=== PATIENT | female | born 1955 | race Caucasian/White ===

== ENCOUNTER 2023-10-31 18:33 | Outpatient (CLI) | payer MEDICARE, BC, SELFPAY | END 2023-10-31 18:34 | disposition home or self-care (01) | LOC: AMB 11-03 13:14 | PROVIDERS: PCP Internal Medicine; Visit Provider Family Medicine | DX: S59.911A Unspecified injury of right forearm, initial encounter (principal); W01.0XXA Fall on same level from slipping, tripping and stumbling without subsequent striking against object, initial encounter; Y92.26 Movie house or cinema as the place of occurrence of the external cause | CPT/HCPCS: A0425; A0427 ==

== ENCOUNTER 2023-10-31 19:11 | Emergency (ER) | payer MEDICARE, BC, SELFPAY ==
[2023-10-31] VITALS (17 sets, daily range): BP systolic 121–144; BP diastolic 71–99; PULSE 71–86; RESP 18; TEMP 36.2; O2SAT 93–98; BMI 48.3
--- NOTE | 2023-10-31 19:36 | ED.GENADULT ---
HPI - General Adult General Chief complaint: Extremity Pain/Injury, Upper Stated complaint: Fall Time Seen by Provider: 10/31/23 19:21 History of Present Illness HPI narrative: Patient [place] the [place], tripped and fell on outstretched right arm. Pain in right shoulder. Patient denies hitting head/ loc. No previous injuries to right arm. EMS administered 50mcg Fentanyl, 4mg Zofran 68-year-old woman presenting to the emergency department with family following a fall near the end of the movie [employer]. Tripped and fell on her right arm. Has pretty bad right shoulder pain and is feeling nauseated still in spite of EMS administered Zofran along with fentanyl. Did have some tingling in her right hand. Denies any other injuries were sustained. No neck or back pain. No lower extremity pain. Has never injured her right arm like this before. Did not hit her head and there was no loss of consciousness Related Data Home Medications Medication Instructions Recorded Confirmed cetirizine 10 mg tablet 10 mg PO DAILY PRN allergies 10/31/23 10/31/23 pantoprazole 40 mg tablet,delayed 40 mg PO BID 10/31/23 10/31/23 release Allergies Allergy/AdvReac Type Severity Reaction Status Date / Time No Known Drug Allergies Allergy Verified 10/31/23 19:22 Review of Systems Status of ROS: Reports: 6 or more systems reviewed and unremarkable except as noted in History and below [facility] Social History How often do you have a drink containing alcohol: never AUDIT-C Alcohol total score: 0 Non-prescribed substance use: denies use Exam Narrative: Exam Narrative: Pleasant. She is holding an emesis bag. Seems as though she is rather uncomfortable. Clearly favoring her right arm. Head is atraumatic. Cranial nerves 2-12 intact. GCS of 15. Quite painful to palpation generally about the right shoulder. Sulcus present? Habitus makes this a little difficult to assess. Has normal sensation and intact pulses distally. Good strength at the hand. Breathing easily. Neck is supple nontender. Lower extremities appear to be without injury. Abdomen is soft appears to be nontender. Const: Vital Signs, click to edit/add: Vital Signs - 24 hr 10/31/23 19:22 10/31/23 19:34 10/31/23 19:35 Temperature 97.1 F L Pulse Rate 74 73 Pulse Rate [Pulse Oximeter] 73 Respiratory Rate 18 Blood Pressure 132/71 Blood Pressure [Le ft Upper Arm] 138/75 Pulse Oximetry 93 96 96 Oxygen Delivery Me thod Room Air 10/31/23 19:45 10/31/23 20:00 10/31/23 20:41 Temperature Pulse Rate 71 79 81 Pulse Rate [Pulse Oximeter] Respiratory Rate Blood Pressure Blood Pressure [Le ft Upper Arm] Pulse Oximetry 96 98 96 Oxygen Delivery Me thod 10/31/23 21:00 10/31/23 21:30 10/31/23 22:00 Temperature Pulse Rate 78 80 76 Pulse Rate [Pulse Oximeter] Respiratory Rate Blood Pressure Blood Pressure [Le ft Upper Arm] Pulse Oximetry 95 97 95 Oxygen Delivery Me thod 10/31/23 22:08 10/31/23 22:30 10/31/23 22:33 Temperature Pulse Rate 78 80 74 Pulse Rate [Pulse Oximeter] Respiratory Rate Blood Pressure 144/90 H 129/81 Blood Pressure [Le ft Upper Arm] Pulse Oximetry 97 95 98 Oxygen Delivery Me thod 10/31/23 22:57 10/31/23 23:00 10/31/23 23:02 Temperature Pulse Rate 83 85 86 Pulse Rate [Pulse Oximeter] Respiratory Rate Blood Pressure 124/77 121/99 H Blood Pressure [Le ft Upper Arm] Pulse Oximetry 98 98 97 Oxygen Delivery Me thod 10/31/23 23:30 10/31/23 23:33 11/01/23 00:00 Temperature Pulse Rate 82 77 91 Pulse Rate [Pulse Oximeter] Respiratory Rate Blood Pressure 137/80 Blood Pressure [Le ft Upper Arm] Pulse Oximetry 97 97 97 Oxygen Delivery Me thod 11/01/23 00:03 11/01/23 00:03 11/01/23 00:03 Temperature Pulse Rate 83 83 83 Pulse Rate [Pulse Oximeter] Respiratory Rate Blood Pressure 114/77 114/77 114/77 Blood Pressure [Le ft Upper Arm] Pulse Oximetry 97 97 97 Oxygen Delivery Me thod 11/01/23 00:30 11/01/23 00:32 11/01/23 00:36 Temperature Pulse Rate 90 90 92 Pulse Rate [Pulse Oximeter] Respiratory Rate Blood Pressure 96/74 Blood Pressure [Le ft Upper Arm] Pulse Oximetry 95 96 98 Oxygen Delivery Hi thod Documenting provider has reviewed patient's vital signs: yes Course Vital Signs Vital signs: Initial Vital Signs Temperature 97.1 F L 10/31/23 19:22 Temperature Source Temporal Artery Scan 10/31/23 19:22 Pulse Rate 73 10/31/23 19:22 Respiratory Rate 18 10/31/23 19:22 Blood Pressure 138/75 10/31/23 19:22 Blood Pressure Mean 96 10/31/23 19:22 Blood Pressure Position Semi-Fowlers 10/31/23 19:22 Pulse Oximetry 93 10/31/23 19:22 Oxygen Delivery Method Room Air 10/31/23 19:22 Vital Signs Temperature 97.1 F L 10/31/23 19:22 Pulse Rate 73 10/31/23 19:22 Respiratory Rate 18 10/31/23 19:22 Blood Pressure 138/75 10/31/23 19:22 Pulse Oximetry 93 10/31/23 19:22 Oxygen Delivery Method Room Air 10/31/23 19:22 Temperature 97.1 F L 10/31/23 19:22 Pulse Rate 78 11/01/23 04:30 Respiratory Rate 20 11/01/23 04:30 Blood Pressure 106/62 11/01/23 04:30 Pulse Oximetry 98 11/01/23 04:32 Oxygen Delivery Method Room Air 11/01/23 04:00 Medications Administered Medications: Discontinued Medications Generic Name Dose Route Start Last Admin Trade Name Freq PRN Reason Stop Dose Admin Hydromorphone HCl 1 mg 10/31/23 19:43 10/31/23 19:56 Hydromorphone 0.5 Mg/0.5 Ml Inj IVP 10/31/23 19:44 1 mg ONCE ONE Administration Hydromorphone HCl 1 mg 10/31/23 23:34 10/31/23 23:38 Hydromorphone 0.5 Mg/0.5 Ml Inj IVP 10/31/23 23:35 0.5 mg ONCE ONE Administration Sodium Chloride 1,000 mls @ 1,000 mls/hr 10/31/23 19:43 10/31/23 22:08 0.9 % Sodium Chloride 1000 Ml IV 10/31/23 20:42 Infused .Q1H ONE Infusion Ketamine HCl 20 mg/ Sodium 100.2 mls @ 200.4 mls/hr 11/01/23 00:50 11/01/23 03:06 Chloride IVPB 11/01/23 00:51 Infused ONCE ONE Infusion Ketamine HCl 20 mg/ Sodium 100.2 mls @ 200.4 mls/hr 11/01/23 04:48 11/01/23 04:56 Chloride IVPB 11/01/23 04:49 Not Given ONCE ONE Ondansetron HCl 4 mg 11/01/23 05:01 11/01/23 05:15 Ondansetron 2 Mg/Ml Inj IVP 11/01/23 05:02 4 mg ONCE ONE Administration Promethazine HCl 12.5 mg 10/31/23 21:24 10/31/23 22:00 Promethazine 25 Mg/Ml Inj IVP 10/31/23 21:25 12.5 mg ONCE ONE Administration Medical Decision Making MDM Narrative Medical decision making narrative: Is having the degree of pain that I would associate with a proximal humeral fracture of some sort. May be some sulcus representing dislocation. Will need to provide more pain medication. Does not appear to have injured more than her shoulder. I would like to reassess further with better pain control. Has an IV placed in her left hand by EMS. Will be giving normal saline. Dilaudid. X-rays of the right shoulder pending. X-ray by my read looks to be a dislocated comminuted? fracture of the humeral head with some inferior subluxation/dislocation. On reassessment still with good sensation and pulses in the right arm. I have discussed this case with Orthopedics on-call. They would like further imaging confirming potential dislocation. Anticipating [place] view however patient will a hard time accommodating and so we have requested CT of the right shoulder also for further information anticipating potential surgery CT scan is done. I did review. There is still what looks to be subluxation of the humeral head inferiorly. Radiology over-read as below Study:?CT Shoulder Right WITHOUT CONTRAST-10/31/2023 11:09:42 PM Ordering Physician:Shahid carbajal Final Report: Indication: Fracture or dislocation. Technique: CT shoulder right without contrast. Comparison: Shoulder x-ray October 31, 2023. Findings: Comminuted fracture of the right humeral head and neck. No other fracture. Subluxation of the glenohumeral joint with inferior displacement of the humeral head relative to the glenoid. Unremarkable AC joint. Joint effusion with a hematocrit level is present. Impression: Comminuted fracture of the humeral head and neck with partial inferior subluxation of the glenohumeral joint. Discussing with our Orthopedics on-call; do not have coverage for shoulder surgery. Still with good deal of pain unable to maneuver herself in any significant way. I think Ms. Brown will need to be admitted here or elsewhere. Without definitive treatment here recommendations are to look elsewhere. I have reached out [facility]. Moving about during imaging appears to need more pain management. Dilaudid has been briefly helpful and will trial ketamine. [facility] is able to accept thankfully. Arranging for transportation. On reassessment she does not like the way ketamine makes her feel but admits that her pain is quite improved. Discharge Plan Discharge Clinical Impression: Inferior subluxation of shoulder, Closed fracture of shoulder Patient Disposition: Xfer Other Discharge Location: [facility] Condition: Stable Prescriptions: No Action cetirizine 10 mg tablet 10 mg PO DAILY PRN (Reason: allergies) pantoprazole 40 mg tablet,delayed release (DR/EC) 40 mg PO BID
--- NOTE | 2023-10-31 19:43 | XR_ITS ---
Patient: LAMBERTO COVARRUBIAS Facility:?[facility] Patient ID:?[id number] Site Patient ID:?[id number]. Site :?[id number] Study:?XRay-Shoulder Right -10/31/2023 8:35:51 PM Ordering Physician:Jonathan Final Report: Indication: Trauma, fall. Technique: Right shoulder 3 views. Comparison: None. Findings/Impression: Inferior dislocation of the glenohumeral joint. Fracture of the humeral head and neck is displaced. Remainder of the shoulder is unremarkable. Dictated by Shamar Mak MD @ 10/31/2023 8:57:55 PM Signed by:?Shamar Mak MD @10/31/2023 8:57:55 PM (Electronic Signature)
[2023-10-31] MEDS: HYDROmorphone 0.5 mg/0.5 ml inj 1 MG IVP ×2 (19:56→23:38)
[2023-10-31] MEDS: 0.9 % SODIUM CHLORIDE 1000 ml 1,000 ML IV (19:56)
--- NOTE | 2023-10-31 21:16 | CT_ITS ---
Patient: LAMBERTO COVARRUBIAS Facility:?[facility] Patient ID:?[id number] Site Patient ID:?[id number]. Site :?[id number] Study:?CT-Shoulder Right WITHOUT CONTRAST-10/31/2023 11:09:42 PM Ordering Physician:?Shahid hickman Final Report: Indication: Fracture or dislocation. Technique: CT shoulder right without contrast. Comparison: Shoulder x-ray October 31, 2023. Findings: Comminuted fracture of the right humeral head and neck. No other fracture. Subluxation of the glenohumeral joint with inferior displacement of the humeral head relative to the glenoid. Unremarkable AC joint. Joint effusion with a hematocrit level is present. Impression: Comminuted fracture of the humeral head and neck with partial inferior subluxation of the glenohumeral joint. Please note that all CT scans at this facility use dose modulation, iterative reconstruction, and/or weight-based dosing when appropriate to reduce radiation dose to as low as reasonably achievable. Dictated by Shamar Mak MD @ 10/31/2023 11:38:03 PM Signed by:?Shamar Mak MD @10/31/2023 11:38:03 PM (Electronic Signature)
[2023-10-31] MEDS: PROMETHAZINE 25 MG/ML INJ 12.5 MG IVP (22:00)
[2023-11-01] VITALS (18 sets, daily range): BP systolic 96–128; BP diastolic 57–93; PULSE 78–102; RESP 20; O2SAT 95–99
[2023-11-01] MEDS: KETAMINE 50 MG/0.5 ML 20 MG in 0.9 % SODIUM CHLORIDE 100 ml 100 ML 200.4 MG IVPB (01:29)
[2023-11-01] MEDS: ONDANSETRON 2 MG/ML inj 4 MG IVP (05:15)
== END 2023-11-01 05:18 | disposition other institution (70) ==
PROVIDERS: Emergency Provider Family Medicine; PCP Internal Medicine
DX: S42.291A Other displaced fracture of upper end of right humerus, initial encounter for closed fracture (principal); W01.0XXA Fall on same level from slipping, tripping and stumbling without subsequent striking against object, initial encounter; Y92.26 Movie house or cinema as the place of occurrence of the external cause
CPT/HCPCS: 73030; 73200; 96365; 96375; 99284; 99285; J1170; J2405; J2550; J3490; J7030

== ENCOUNTER 2023-11-01 04:45 | Outpatient (CLI) | payer MEDICARE, BC, SELFPAY | END 2023-11-01 04:46 | disposition home or self-care (01) | LOC: AMB 11-04 11:41 | PROVIDERS: PCP Internal Medicine; Visit Provider Family Medicine | DX: S42.9 Fracture of shoulder girdle, part unspecified (principal) | CPT/HCPCS: A0425; A0428 ==